=== PATIENT | female | born 1995 | race Caucasian/White ===

== ENCOUNTER 2018-08-16 02:48 | Emergency (ER) | payer BC ==
[~2018-08-16] VITALS: Ht 154.9 cm; Wt 56.7 kg
[2018-08-16] MEDS ORDERED: NKM (02:55)
[2018-08-16 02:57] VITALS: BP 124/83
--- NOTE | 2018-08-16 03:00 | NUR ---
ED Nurse Note: Pt ambulated to ED from home, c/o 8/10 L ear pain x1week, today she used ear drops and her hearing in that ear has decreased. Pt is A&Ox4
[2018-08-16] MEDS ORDERED: IBUPROFEN600 MG ORAL (03:16)
[2018-08-16] MEDS ORDERED: CIPRODEX OTIC7.5 M1 LEFT EAR (03:16)
--- NOTE | 2018-08-16 03:17 | Emergency Room Report ---
History of Present Illness General Chief Complaint: Earache Present Illness HPI This is a 22-year-old female with no past medical history. She presents with chief complaint of left ear pain. Onset for about a week. Unable to hear out of it now. Pain is 8 out of 10. Worse with yawning. Worse with coughing. No nausea no vomiting. No fever chills but no upper restaurant infection. Over- the-counter eardrops not helping. Allergies: Coded Allergies: No Known Allergies (Unverified , 08/16/18) Patient History Past Medical History: see triage record, old chart reviewed Past Surgical History: none Social History: Denies: smoking Last Menstrual Period: 06/20/18 Now: No : 0 Para: 0 Immunizations: other Reviewed Nursing Documentation: PMH: Agreed; PSxH: Agreed Review of Systems Eye: Denies: eye pain, blurred vision ENT: Reports: ear pain; Denies: nose congestion, throat swelling Respiratory: Denies: cough, shortness of breath Cardiovascular: Denies: chest pain, palpitations Gastrointestinal: Denies: abdominal pain, diarrhea, nausea, vomiting Musculoskeletal: Denies: back pain, joint pain Skin: Denies: rash Neurological: Denies: headache, numbness Endocrine: Denies: increased thirst, increased urine Hematologic/Lymphatic: Denies: easy bruising All Other Systems: negative except mentioned in HPI Physical Exam Vital Signs Date Time Temp Pulse Resp B/P (MAP) Pulse Ox O2 Delivery O2 Flow Rate FiO2 08/16/18 02:51 98.4 95 18 124/83 (97) 98 Room Air Vitals normal Sp02 EP Interpretation: reviewed, normal General Appearance: well appearing, no apparent distress, alert Head: normocephalic, atraumatic Eyes: bilateral eye PERRL, bilateral eye EOMI ENT: normal pharynx, other - Left Ear: She has edema to the external canal. Painful with movement of the pinna. No mastoiditis. Neck: full range of motion, supple, no meningismus Respiratory: chest non-tender, lungs clear, normal breath sounds Cardiovascular #1: regular rate, rhythm, no murmur Gastrointestinal: normal bowel sounds, non tender, no mass, no organomegaly, no bruit, non-distended Musculoskeletal: back normal, gait/station normal, normal range of motion Psychiatric: mood/affect normal Skin: warm/dry Medical Decision Making Diagnostic Impression: Primary Impression: Left otitis externa Qualified Codes: H60.502 - Unspecified acute noninfective otitis externa, left ear ER Course Patient with otitis externa. There is no perforation. No mastoiditis. No evidence of any meningitis. Will discharge home. Last Vital Signs Date Time Temp Pulse Resp B/P (MAP) Pulse Ox O2 Delivery O2 Flow Rate FiO2 08/16/18 02:57 98.4 80 18 124/83 98 Room Air Status: unchanged Disposition: HOME, SELF-CARE Condition: Stable Scripts Ciprofloxacin Hcl/Dexameth (CIPRODEX OTIC SUSPENSION) 7.5 Ml Drops.susp 4 DROP LEFT EAR TWICE A DAY, #10 ML Prov: Robbie Huerta MD 08/16/18 Ibuprofen* (MOTRIN*) 600 Mg Tablet 600 MG ORAL THREE TIMES A DAY, #30 TAB 0 Refills Prov: Robbie Huerta MD 08/16/18 Patient Instructions: Otitis Externa, [id number] Additional Instructions: Follow-up with your doctor in 7 days for recheck. Return if worse. Robbie Huerta MD Aug 16, 2018 03:17
--- NOTE | 2018-08-16 03:23 | NUR ---
ER DISCHARGE NOTE: Patient is cleared to be discharged per ERMD, pt is aox4, on room air, with stable vital signs. pt was given dc and prescription instructions, pt was able to verbalize understanding, pt id band removed. pt is able to ambulate with steady gait. pt took all belongings.
== END 2018-08-16 03:23 | disposition home or self-care (01) ==
LOC: EMR 03:07
DX: H60.502 Unspecified acute noninfective otitis externa, left ear (principal)
CPT/HCPCS: 99282